=== PATIENT | male | born 1955 | race American Indian/Alaskan Native ===

== ENCOUNTER 2021-04-09 15:52 | Emergency (ER) | payer MEDICARE ==
[~2021-04-09 15:52] MED LIST: NALOXONE 2 MG/2 ML INJ ONE
[2021-04-09] MEDS ORDERED: SODIUM CHLORIDE 0.9% 100 ML ONE (15:55)
[2021-04-09] MEDS ORDERED: MIDAZOLAM 2 MG/2 ML INJ IV PRN (16:05)
[2021-04-09] MEDS ORDERED: MINERAL OIL/PETROLATUM, WHITE OPHTH OINT 3.5 GM OU PRN (16:05)
[2021-04-09] MEDS ORDERED: LIP THERAPY VASELINE TP PRN (16:05)
[2021-04-09] MEDS ORDERED: levETIRAcetam 1000 MG/NS 0.75% 1,000 MG/100 ML BAG IV ONE ×3 (16:14→17:46)
--- NOTE | 2021-04-09 16:14 | Emergency Department Report ---
HPI - General Time Seen by Provider: 04/09/21 16:04 - HPI HPI: This is a 65-year-old -[place] male presents to the emergency department via EMS from a nearby apartment complex with a complaint of altered mental status and respiratory distress. The initial call from EMS was for cardiac arrest. EMS arrived and found the patient to have a pulse but he was altered and unresponsive. He then had a witnessed seizure and was given 2 mg of Ativan. A few minutes later the patient became apneic. A nasal airway was placed and the patient received bag valve ventilation. After about 1 minute the patient began having some shallow snoring respirations. He has a history of seizures but we do not know what medication he is on. He has a history of diabetes and his Accu- Chek was about 220 in route. Patient was admitted here in October of this year with a COVID-19 infection. He received a Covid vaccination about 1 month ago. ED Past Medical Hx - Past Medical History Hx Diabetes: Yes - Social History Smoking Status: Unknown if ever smoked - Medications Home Medications: Home Medications Medication Instructions Recorded Confirmed Last Taken Type Apixaban [Eliquis] 5 mg PO DAILY #30 tablet 11/07/20 Unknown Rx Dexamethasone 6 mg PO DAILY #7 tablet 11/07/20 Unknown Rx guaiFENesin/CODEINE [Robitussin AC] 10 ml PO Q4H PRN #1 oral.liqd 11/07/20 Unknown Rx ED Review of Systems ROS: Stated complaint: WILLIAMS Other details as noted in HPI Comment: Unobtainable due to pts medical conditions Physical Exam - Physical Exam Physical Exam: GENERAL: The patient is ill-appearing and unresponsive. HENT: Normocephalic. Atraumatic. Patient has moist mucous membranes. EYES: Pupils are equal at 3 mm and sluggish and reactivity to light. NECK: Supple. Trachea is midline. CHEST/LUNGS: Shallow snoring respirations with bradypnea. HEART/CARDIOVASCULAR: Regular. There is mild to moderate tachycardia. There is no murmur. ABDOMEN: Abdomen is soft, nontender. Patient has normal bowel sounds. There is no abdominal distention. SKIN: Skin is warm and dry. NEURO: Patient is unresponsive to verbal and tactile stimuli. GCS of 3. MUSCULOSKELETAL: There is no obvious deformity. ED Course - Consultations Consultation #1: 04/09/21 17:29 I spoke with the neurosurgeon on-call, Dr. Ruvalcaba. We discussed the patient's presentation and the CT findings of multiple parenchymal hypodensities concerning for mass/lesions, as well as the area of the right basal ganglia with mass-effect upon the right ventricle. He says that the patient requires transfer, especially given the basal ganglia lesion. Consultation #2: 04/09/21 17:30 I have placed a call to the [facility] transfer center, in an attempt to get the patient accepted and transferred. 04/09/21 17:50 I spoke with the neuro rotary filter operator, Dr. Betancourt, who has accepted the patient for transfer to [facility]. He is asked for the patient to receive 10 mg of Decadron, another 3 g of Keppra, and mannitol at 1 g/kg. - ABG Interpretation Ph: 7.387 PCO2: 34 PO2: 348 Bicarbonate: 20 Interpretation: respiratory alkalosis, metabolic acidosis - Intubation Time Out Performed: Yes Sedative: Etomidate Mg Given: 20 Paralytic: Rocuronium Mg Given: 70 Laryngoscope: other ([place] scope) Size: 4 ET Tube Size: 7.5 Tube Secured Depth (cm): 24 Tube Secured Location: lips Tube Placement Confirmation: visualized tube passing t, equal breath sounds bilat, confirmation by capnometr Patient Tolerated Procedure: well Intubation Complications: none ED Medical Decision Making - Lab Data Result diagrams: 04/09/21 16:15 04/09/21 16:15 Lab Results 04/09/21 04/09/21 04/09/21 Range/Units 16:15 16:15 16:15 WBC 6.3 (4.5-11.0) K/mm3 RBC 4.32 (3.65-5.03) M/mm3 Hgb 10.5 L (11.8-15.2) gm/dl Hct 33.2 L (35.5-45.6) % MCV 77 L (84-94) fl MCH 24 L (28-32) pg MCHC 32 (32-34) % RDW 15.2 (13.2-15.2) % Plt Count 179 (140-440) K/mm3 Lymph % (Auto) 13.4 (13.4-35.0) % Fannin % (Auto) 8.3 H (0.0-7.3) % Eos % (Auto) 0.3 (0.0-4.3) % Baso % (Auto) 0.2 (0.0-1.8) % Lymph # (Auto) 0.8 L (1.2-5.4) K/mm3 Fannin # (Auto) 0.5 (0.0-0.8) K/mm3 Eos # (Auto) 0.0 (0.0-0.4) K/mm3 Baso # (Auto) 0.0 (0.0-0.1) K/mm3 Seg Neutrophils % 77.8 H (40.0-70.0) % Seg Neutrophils # 4.9 (1.8-7.7) K/mm3 PT 14.4 (12.2-14.9) Sec. INR 1.06 (0.87-1.13) APTT 32.6 (24.2-36.6) Sec. ABG pH (7.320-7.450) POC ABG pCO2 (32.0-48.0) mmHg POC ABG pO2 (83-108) mmHg POC ABG HCO3 ABG O2 Saturation (0-100) POC ABG Base Excess ABG Hemoglobin (12.0-17.5) ABG Oxyhemoglobin (94-98) ABG Methemoglobin (0.0-1.5) ABG Sodium (136.0-145.0) mmol/L ABG Potassium (3.40-4.50) mmol/L ABG Chloride (98-107) mmol/L ABG Glucose (65-95) mg/dL Carboxyhemoglobin (0.5-1.5) FiO2 % Sodium 138 (137-145) mmol/L Potassium 4.1 (3.6-5.0) mmol/L Chloride 101.7 (98-107) mmol/L Carbon Dioxide 12 L (22-30) mmol/L Anion Gap 28 mmol/L BUN 14 (9-20) mg/dL Creatinine 0.9 (0.8-1.3) mg/dL Estimated GFR > 60 ml/min BUN/Creatinine Ratio 16 % Glucose 198 H (75-100) mg/dL Calcium 8.9 (8.4-10.2) mg/dL Magnesium 2.00 (1.7-2.3) mg/dL Total Bilirubin 0.20 (0.1-1.2) mg/dL AST 48 H (5-40) units/L ALT 32 (7-56) units/L Alkaline Phosphatase 119 (35-129) units/L Ammonia (25-60) umol/L Troponin T (0.00-0.029) ng/mL NT-Pro-B Natriuret Pep (0-900) pg/mL Total Protein 9.1 H (6.3-8.2) g/dL Albumin 3.7 L (3.9-5) g/dL Albumin/Globulin Ratio 0.7 % Arterial Blood Glucose (65-95) mg/dL 04/09/21 04/09/21 04/09/21 Range/Units 16:15 16:15 16:47 WBC (4.5-11.0) K/mm3 RBC (3.65-5.03) M/mm3 Hgb (11.8-15.2) gm/dl Hct (35.5-45.6) % MCV (84-94) fl MCH (28-32) pg MCHC (32-34) % RDW (13.2-15.2) % Plt Count (140-440) K/mm3 Lymph % (Auto) (13.4-35.0) % Fannin % (Auto) (0.0-7.3) % Eos % (Auto) (0.0-4.3) % Baso % (Auto) (0.0-1.8) % Lymph # (Auto) (1.2-5.4) K/mm3 Fannin # (Auto) (0.0-0.8) K/mm3 Eos # (Auto) (0.0-0.4) K/mm3 Baso # (Auto) (0.0-0.1) K/mm3 Seg Neutrophils % (40.0-70.0) % Seg Neutrophils # (1.8-7.7) K/mm3 PT (12.2-14.9) Sec. INR (0.87-1.13) APTT (24.2-36.6) Sec. ABG pH 7.387 (7.320-7.450) POC ABG pCO2 34.9 (32.0-48.0) mmHg POC ABG pO2 348.9 H (83-108) mmHg POC ABG HCO3 20.5 ABG O2 Saturation 99.8 (0-100) POC ABG Base Excess -3.9 ABG Hemoglobin 11.4 L (12.0-17.5) ABG Oxyhemoglobin 99.7 H (94-98) ABG Methemoglobin 0.1 (0.0-1.5) ABG Sodium 139.3 (136.0-145.0) mmol/L ABG Potassium 3.5 (3.40-4.50) mmol/L ABG Chloride 105.0 (98-107) mmol/L ABG Glucose 221 H (65-95) mg/dL Carboxyhemoglobin 0 L (0.5-1.5) FiO2 % 70.0 Sodium (137-145) mmol/L Potassium (3.6-5.0) mmol/L Chloride (98-107) mmol/L Carbon Dioxide (22-30) mmol/L Anion Gap mmol/L BUN (9-20) mg/dL Creatinine (0.8-1.3) mg/dL Estimated GFR ml/min BUN/Creatinine Ratio % Glucose (75-100) mg/dL Calcium (8.4-10.2) mg/dL Magnesium (1.7-2.3) mg/dL Total Bilirubin (0.1-1.2) mg/dL AST (5-40) units/L ALT (7-56) units/L Alkaline Phosphatase (35-129) units/L Ammonia 62.0 H (25-60) umol/L Troponin T < 0.010 (0.00-0.029) ng/mL NT-Pro-B Natriuret Pep 173.1 (0-900) pg/mL Total Protein (6.3-8.2) g/dL Albumin (3.9-5) g/dL Albumin/Globulin Ratio % Arterial Blood Glucose 221 H (65-95) mg/dL - Radiology Data Radiology results: report reviewed, image reviewed interpreted by me: Chest x-ray does not show any pneumonia, pleural effusions, pneumothorax, widened mediastinum. Endotracheal tube is in appropriate position. CT HEAD WITHOUT CONTRAST INDICATION / CLINICAL INFORMATION: Seizure, AMS, Best images possible. TECHNIQUE: All CT scans at this location are performed using CT dose reduction for ALARA by means of automated exposure control. COMPARISON: CT head 10/25/2008 FINDINGS: HEMORRHAGE: None. EXTRA-AXIAL SPACES: Normal in size and morphology for the patient's age. VENTRICULAR SYSTEM: Normal in size and morphology for the patient's age. CEREBRAL PARENCHYMA: There is subcortical white matter hypoattenuation in the bilateral frontal and parietal lobes. There is suspected lesion in the right basal ganglia There is mild effacement of the right lateral ventricle. MIDLINE SHIFT / HERNIATION: None. CEREBELLUM / BRAINSTEM: No significant abnormality. ORBITS: Normal as visualized. SOFT TISSUES: No significant abnormality. SKULL: No significant abnormality. PARANASAL SINUSES / MASTOID AIR CELLS: There is fluid in the ethmoid air cells. There is fluid in the posterior nasopharynx. Mastoid air cells are clear. ADDITIONAL FINDINGS: None. IMPRESSION: 1. Bilateral parenchymal hypodensities in the frontal and parietal lobes are concerning for underlying lesions with edema. Additional suspected lesion in the right basal ganglia with mass effect on the right lateral ventricle. Recommend further evaluation with MRI. - Medical Decision Making The initial call for this patient was allegedly for cardiac arrest. However, EMS arrived to find the patient unresponsive but with a pulse. The patient had a witnessed seizure and received 2 mg of Ativan. A few minutes later the patient had signs of respiratory distress with episodes of apnea. The patient arrived into the emergency department with shallow, snoring respirations with bradypnea. He had a GCS of 3, and for these reasons the patient was intubated as per the procedure section. With the unresponsive episode, seizure, and respiratory failure, the patient was sent for a stat CT scan of the head with concern for hemorrhage. No hemorrhage was seen, but CT reading was for bilateral frontal and parietal hypodensities concerning for underlying lesions with edema. There is also a hypodensity in the right basal ganglia with concern for edema as well that is causing some effacement of the right ventricle. The patient was accepted for transfer to [facility] on [address]. Chest x-ray does not show any pneumonia, pleural effusions, widened mediastinum, and the endotracheal tube appears in appropriate position. The patient's labs are mostly unremarkable including CBC, metabolic panel, normal thyroid function, negative troponin. There is a slight elevation in the ammonia level. Patient was placed on a Versed drip for sedation. He was given a gram of Keppra initially after the complaint of seizure. The accepting neuro rotary filter operator asked for the patient to be given a further 3 g of Keppra, 10 mg of Decadron, and mannitol at 1 g/kg. The patient's , Bebeto, and daughter, Ayaan, have been updated and are aware of the patient's transport to [facility]. Critical Care Time: Yes Critical care time in (mins) excluding proc time.: 75 Critical care attestation.: If time is entered above; I have spent that time in minutes in the direct care of this critically ill patient, excluding procedure time. Critical care time has been spent on this patient in doing his initial examination, multiple reevaluations, ordering and interpretation of labs and imaging, discussion with our neurosurgeon simulation engineer, discussion with the neuro critical care attending at the accepting facility, IV Decadron, IV mannitol, IV Keppra, Versed drip for sedation. This does not include the time spent on the separately billable procedure of intubation. Critical Care Time: 75 minutes ED Disposition Clinical Impression: Brain mass, Abnormal CT scan, head, Seizure Acute respiratory failure Qualifiers: Respiratory failure complication: unspecified whether with hypoxia or hypercapnia Qualified Code(s): J96.00 - Acute respiratory failure, unspecified whether with hypoxia or hypercapnia Disposition: DC/TX-70 ANOTHER TYPE HLTHCARE Is pt being admited?: No Condition: Critical Time of Disposition: 19:17
--- NOTE | 2021-04-09 16:50 | Cat Scan Report ---
CT HEAD WITHOUT CONTRAST INDICATION / CLINICAL INFORMATION: Seizure, AMS, Best images possible. TECHNIQUE: All CT scans at this location are performed using CT dose reduction for ALARA by means of automated exposure control. COMPARISON: CT head 10/25/2008 FINDINGS: HEMORRHAGE: None. EXTRA-AXIAL SPACES: Normal in size and morphology for the patient's age. VENTRICULAR SYSTEM: Normal in size and morphology for the patient's age. CEREBRAL PARENCHYMA: There is subcortical white matter hypoattenuation in the bilateral frontal and p arietal lobes. There is suspected lesion in the right basal ganglia There is mild effacement of the r ight lateral ventricle. MIDLINE SHIFT / HERNIATION: None. CEREBELLUM / BRAINSTEM: No significant abnormality. ORBITS: Normal as visualized. SOFT TISSUES: No significant abnormality. SKULL: No significant abnormality. PARANASAL SINUSES / MASTOID AIR CELLS: There is fluid in the ethmoid air cells. There is fluid in the posterior nasopharynx. Mastoid air cells are clear. ADDITIONAL FINDINGS: None. IMPRESSION: 1. Bilateral parenchymal hypodensities in the frontal and parietal lobes are concerning for underlyin g lesions with edema. Additional suspected lesion in the right basal ganglia with mass effect on the right lateral ventricle. Recommend further evaluation with MRI. Signer Name: Neeraj Gandhi MD Signed: 04/09/2021 4:44 PM Workstation Name: [id number]
[2021-04-09 16:53] LABS: INR 1.06 (0.87-1.13); Partial Thromboplastin Time 32.6 Sec. (24.2-36.6)
[2021-04-09] MEDS ORDERED: MIDAZOLAM 100 MG in SODIUM CHLORIDE 0.9% 80 ML IV SCH (17:00)
--- NOTE | 2021-04-09 17:05 | XRay Report ---
CHEST 1 VIEW 04/09/2021 4:52 PM INDICATION / CLINICAL INFORMATION: ETT placement. COMPARISON: November 03, 2020 FINDINGS: SUPPORT DEVICES: The endotracheal tube terminates 4.9 cm the matthew. There is an enteric tube termina ting within the stomach. HEART / MEDIASTINUM: No significant abnormality. LUNGS / PLEURA: No significant pulmonary or pleural abnormality. No pneumothorax. ADDITIONAL FINDINGS: No significant additional findings. IMPRESSION: 1. No acute findings. Signer Name: Ford Monique DO Signed: 04/09/2021 5:01 PM Workstation Name: [id number]
[2021-04-09 17:10] LABS: BUN/Creatinine Ratio 16
[2021-04-09 17:13] LABS: Basophils % (Auto) 0.2 % (0.0-1.8); Eosinophils % (Auto) 0.3 % (0.0-4.3); Hematocrit 33.2 % (35.5-45.6); Hemoglobin 10.5 gm/dl (11.8-15.2); Lymphocytes # (Auto) 0.8 K/mm3 (1.2-5.4); Lymphocytes % (Auto) 13.4 % (13.4-35.0); Mean Corpuscular HGB Conc 32 % (32-34); Mean Corpuscular Volume 77 fl (84-94); Monocytes # (Auto) 0.5 K/mm3 (0.0-0.8); Monocytes % (Auto) 8.3 % (0.0-7.3); Platelet Count 179 K/mm3 (140-440); Red Blood Count 4.32 M/mm3 (3.65-5.03); Red Cell Distribution Width 15.2 % (13.2-15.2)
[2021-04-09 17:20] LABS: Blood Urea Nitrogen 14 mg/dL (9-20); Calcium 8.9 mg/dL (8.4-10.2)
[2021-04-09 17:21] LABS: Alanine Aminotransferase 32 units/L (7-56); Albumin 3.7 g/dL (3.9-5)
[2021-04-09] MEDS ORDERED: dexAMETHasone 20 MG/5 ML VIAL IV ONE (17:46)
[2021-04-09] MEDS ORDERED: MANNITOL 20% 500 ML IV ONE (18:47)
[2021-04-09 20:47] VITALS: BP 133/62
== END 2021-04-09 20:00 | disposition other institution (70) ==
LOC: ED 15:52
DX: J96.00 Acute respiratory failure, unspecified whether with hypoxia or hypercapnia (principal); G93.89 Other specified disorders of brain; R93.0 Abnormal findings on diagnostic imaging of skull and head, not elsewhere classified; E11.9 Type 2 diabetes mellitus without complications
CPT/HCPCS: 31500; 36415; 70450; 71045; 80053; 82140; 82805; 83735; 83880; 84484; 85025; 85610; 85730; 87070; 87205; 96365; 96366; 96367; 96375; 96376; 99291; 99292; J1100; J1953; J2150; J2250; J2310; 94002